=== PATIENT | male | born 1995 | race Caucasian/White ===

== ENCOUNTER 2023-06-26 18:36 | Emergency (ER) | payer MEDICAID ==
[2023-06-26] MEDS: Ketorolac 30 MG/ML SDV IM ONE (19:57)
== END 2023-06-26 20:04 | disposition home or self-care (01) ==
LOC: JP.ED 18:36
DX: K02.9 Dental caries, unspecified (principal); Z79.899 Other long term (current) drug therapy
CPT/HCPCS: 96372; 99282; J1885

== ENCOUNTER 2023-06-27 16:13 | Emergency (ER) | payer MEDICAID | END 2023-06-27 18:10 | disposition home or self-care (01) | LOC: JP.ED 16:13 | DX: K04.7 Periapical abscess without sinus (principal) | CPT/HCPCS: 99282 ==

== ENCOUNTER 2023-06-28 08:10 | Day surgery (SDC) | payer MEDICAID ==
[~2023-06-28 08:10] MED LIST: Bupivacaine 0.5%/EPINEPHrine 1:200,000 50 ML MDV ONE; Nozin Nasal Sanitizer NASBOTH ONE
[2023-06-28] MEDS: Nozin Nasal Sanitizer NASBOTH ONE (08:52)
[2023-06-28] MEDS: Lactated Ringers 1,000 ML IV SCH (08:52)
[2023-06-28] MEDS: ceFAZolin 2 GM in Premix Bag 1 BAG IV ONE (08:53)
[2023-06-28] MEDS ORDERED: fentaNYL 100 MCG/2 ML SDV ONE (08:56)
[2023-06-28] MEDS ORDERED: Lidocaine 0.5% 50 ML SDV ONE (08:56)
[2023-06-28] MEDS ORDERED: Propofol 200 MG/20 ML SDV ONE ×2 (08:56→09:13)
[2023-06-28] MEDS ORDERED: Midazolam 1 MG/ML 2 ML SDV ONE (08:57)
[2023-06-28] MEDS: Bupivacaine 0.5% 50 ML MDV ONE (09:51)
== END 2023-06-28 11:16 | disposition home or self-care (01) ==
LOC: JP.SDS 08:10
PROVIDERS: ATTEND Specialist
DX: S52.552A Other extraarticular fracture of lower end of left radius, initial encounter for closed fracture (principal); F17.200 Nicotine dependence, unspecified, uncomplicated; X58.XXXA Exposure to other specified factors, initial encounter
CPT/HCPCS: 25606; 76000; A9270; J0690; J2250; J2704; J3010; J3490; J7120